=== PATIENT | male | born 1940 | race Caucasian/White ===

== ENCOUNTER 2017-07-22 14:51 | Emergency (ER) | payer OTHER ==
[~2017-07-22] VITALS: Ht 180.3 cm; Wt 88.5 kg
[2017-07-22 15:20] VITALS: BP 136/68
== END 2017-07-22 17:40 | disposition home or self-care (01) ==
LOC: ER 14:55
DX: L03.116 Cellulitis of left lower limb (principal); M79.89 Other specified soft tissue disorders
CPT/HCPCS: 93971; 99284; A4606; Z7610